=== PATIENT | female | born 1955 | race Caucasian/White ===

== ENCOUNTER 2016-03-29 14:01 | Inpatient (IN) | payer BC, OTHER ==
[2016-03-29] VITALS (17 sets, daily range): BP systolic 100–139; RESP 19–28; TEMP 97.9; BMI 19.0
[~2016-03-29] VITALS: Ht 152.4 cm; Wt 44.2 kg
[2016-03-29] MEDS ORDERED: OPTIRAY 350 100 ML VIAL HMH IV ONE (14:02)
[2016-03-29] MEDS ORDERED: DUONEB INH ONE (15:05)
[2016-03-29] MEDS ORDERED: ASPIRIN 81 MG CHEW TAB ONE (15:13)
[2016-03-29] MEDS ORDERED: METHYLPRED SOD SUCC 125 MG/2 ML VIAL ONE (15:17)
[2016-03-29] MEDS ORDERED: SODIUM CHLORIDE 0.9% 1,000 ML ONE (15:19)
[2016-03-29] MEDS ORDERED: NITROGLYCERIN/D5W 250 ML IV ONE (15:19)
[2016-03-29] MEDS ORDERED: CEFTRIAXONE 1 GM VIAL ONE (17:00)
[2016-03-29] MEDS ORDERED: SODIUM CHLORIDE 0.9% 100 ML IV ONE (17:00)
[2016-03-29] MEDS ORDERED: AZITHROMYCIN 500 MG VIAL IV ONE (17:50)
[2016-03-29] MEDS ORDERED: SODIUM CHLORIDE 0.9% 250 ML IV ONE (17:50)
[2016-03-29] MEDS ORDERED: ASPIRIN 81 MG CHEW TAB PO ONE (18:35)
[2016-03-29] MEDS ORDERED: TRAMADOL 50 MG TAB PO PRN (18:35)
[2016-03-29] MEDS ORDERED: LORAZEPAM 0.5 MG TAB PO PRN (18:35)
[2016-03-29] MEDS ORDERED: NITROGLYCERIN SL 0.4 MG TAB SL PRN (18:35)
[2016-03-29] MEDS ORDERED: ACETAMINOPHEN 325 MG TAB PO PRN (18:35)
[2016-03-29] MEDS ORDERED: SALINE FLUSH 10 ML FLUSH PRN (18:35)
[2016-03-29] MEDS ORDERED: MORPHINE 2 MG/ML SYR IV PRN (18:35)
[2016-03-29] MEDS ORDERED: SODIUM CHLORIDE 0.9% FLUSH BAG 500 ML IV PRN (18:35)
[2016-03-29] MEDS ORDERED: DOCUSATE SOD 100 MG CAP PO PRN (18:35)
[2016-03-29] MEDS ORDERED: NITROGLYCERIN 50 MG/250 ML IV PRN (18:35)
[2016-03-29] MEDS ORDERED: TEMAZEPAM 15 MG CAP PO PRN (18:35)
[2016-03-29] MEDS ORDERED: ONDANSETRON 4 MG VIAL IV PRN (18:35)
[2016-03-29] MEDS: SALINE FLUSH 10 ML FLUSH SCH (20:00)
[2016-03-30] VITALS (36 sets, daily range): BP systolic 104–153; RESP 13–29; TEMP 97.5–98.2
[2016-03-30] MEDS ORDERED: ASPIRIN EC 81 MG TAB PO SCH (08:00)
[2016-03-30] MEDS: SALINE FLUSH 10 ML FLUSH SCH ×2 (08:00→21:24)
[2016-03-30] MEDS ORDERED: clonazePAM 0.5 MG TAB PO PRN (09:05)
[2016-03-30] MEDS: ATENOLOL 25 MG TAB PO SCH (09:05)
[2016-03-30] MEDS: ASPIRIN 81 MG CHEW TAB PO SCH (09:18)
[2016-03-30] MEDS: LEVOFLOXACIN 750 MG/150 ML 150 ML IV SCH (10:10)
[2016-03-30] MEDS: LISINOPRIL 10 MG TAB PO SCH (10:11)
[2016-03-30] MEDS: LEVOTHYROXINE 0.05 MG TAB PO SCH (10:11)
[2016-03-30] MEDS: OMEGA 3 FATTY ACIDS 1 GM CAP PO SCH (10:11)
[2016-03-30] MEDS: ISOSORBIDE MONO 30 MG TAB PO SCH (10:11)
[2016-03-30] MEDS: PENTOXIFYLLINE 400 MG TAB PO SCH ×3 (10:11→21:22)
[2016-03-30] MEDS: CLOPIDOGREL 75 MG TAB PO SCH (10:12)
[2016-03-30] MEDS: NEB-BROVANA 15 MCG/2 ML INH SCH (19:00)
[2016-03-30] MEDS: ROSUVASTATIN 5 MG TAB PO SCH (21:21)
[2016-03-31 03:54] VITALS: BP_SYST 151; RESP 18; TEMP 97.6
[2016-03-31] MEDS: NEB-BROVANA 15 MCG/2 ML INH SCH ×2 (06:37→19:27)
[2016-03-31] MEDS: LEVOTHYROXINE 0.05 MG TAB PO SCH (06:39)
[2016-03-31 08:14] VITALS: BP_SYST 160; RESP 18; TEMP 98.1
[2016-03-31] MEDS: SALINE FLUSH 10 ML FLUSH SCH ×2 (08:38→20:23)
[2016-03-31] MEDS: LEVOFLOXACIN 750 MG/150 ML 150 ML IV SCH (08:39)
[2016-03-31] MEDS: ASPIRIN 81 MG CHEW TAB PO SCH (08:40)
[2016-03-31] MEDS: LISINOPRIL 10 MG TAB PO SCH (08:40)
[2016-03-31] MEDS: PENTOXIFYLLINE 400 MG TAB PO SCH ×3 (08:40→20:20)
[2016-03-31] MEDS: OMEGA 3 FATTY ACIDS 1 GM CAP PO SCH (08:40)
[2016-03-31] MEDS: CLOPIDOGREL 75 MG TAB PO SCH (08:41)
[2016-03-31] MEDS: ISOSORBIDE MONO 30 MG TAB PO SCH (08:41)
[2016-03-31] MEDS: ATENOLOL 25 MG TAB PO SCH ×2 (08:42→10:45)
[2016-03-31] MEDS: ENOXAPARIN 30 MG/0.3 ML SYR SUBQ SCH (10:46)
[2016-03-31 12:20] VITALS: BP_SYST 149; RESP 18; TEMP 98.7
[2016-03-31 16:35] VITALS: BP_SYST 140; RESP 18; TEMP 98.4
[2016-03-31 19:45] VITALS: BP_SYST 170; RESP 16; TEMP 99.2
[2016-03-31] MEDS: ROSUVASTATIN 5 MG TAB PO SCH (20:20)
[2016-03-31 22:48] VITALS: BP_SYST 157; RESP 18; TEMP 98.1
[2016-04-01 02:57] VITALS: BP_SYST 146; RESP 18; TEMP 99.3
[2016-04-01] MEDS: NEB-BROVANA 15 MCG/2 ML INH SCH (05:09)
[2016-04-01] MEDS: LEVOTHYROXINE 0.05 MG TAB PO SCH (06:37)
[2016-04-01 07:15] VITALS: BP_SYST 143; RESP 18; TEMP 98
[2016-04-01] MEDS: OMEGA 3 FATTY ACIDS 1 GM CAP PO SCH (08:20)
[2016-04-01] MEDS: SALINE FLUSH 10 ML FLUSH SCH (08:20)
[2016-04-01] MEDS: LISINOPRIL 10 MG TAB PO SCH (08:21)
[2016-04-01] MEDS: ISOSORBIDE MONO 30 MG TAB PO SCH (08:21)
[2016-04-01] MEDS: ATENOLOL 25 MG TAB PO SCH (08:21)
[2016-04-01] MEDS: PENTOXIFYLLINE 400 MG TAB PO SCH ×2 (08:21→15:24)
[2016-04-01] MEDS: CLOPIDOGREL 75 MG TAB PO SCH (08:21)
[2016-04-01] MEDS: ASPIRIN 81 MG CHEW TAB PO SCH (08:21)
[2016-04-01] MEDS: ENOXAPARIN 30 MG/0.3 ML SYR SUBQ SCH (08:22)
[2016-04-01] MEDS ORDERED: LEVOFLOXACIN 750 MG TAB PO SCH (09:00)
[2016-04-01 11:20] VITALS: BP_SYST 140; RESP 18; TEMP 98.2
[2016-04-01 16:57] VITALS: BP_SYST 152; RESP 16; TEMP 98.7
[2016-04-01 17:45] VITALS: BP_SYST 152; RESP 16; TEMP 98.7
== END 2016-04-01 18:35 | disposition home or self-care (01) | DRG 195 ==
LOC: ENRESERVDT → ENRESERVTM → ER 14:01 → ENPENDDIS 16:57 → EMR 16:57 → CCU 18:28 → PCU2 03-30 15:13
PROVIDERS: ADMIT Internal Medicine Cardiovascular Disease; ATTEND Internal Medicine Cardiovascular Disease
CPT/HCPCS: 36415; 71020; 71260; 72100; 80053; 82550; 82553; 83735; 83880; 84484; 85025; 85610; 85730; 93005; 94640; 94799; 96361; 96365; 96366; 96367; 96375